=== PATIENT | male | born 1975 | race Caucasian/White ===

== ENCOUNTER 2018-12-30 15:15 | Emergency (ER) | payer OTHER ==
[~2018-12-30] VITALS: Ht 182.9 cm; Wt 114.8 kg
[~2018-12-30 15:15] MED LIST: COUMADIN5 MG PO; COUMADIN7.5 MG PO; LOV40I SQ; LOVENOX100 MG/ML SC; XARELTO15 M1 PO
[2018-12-30 15:28] VITALS: Ht 182.9 cm; Wt 114.8 kg
[2018-12-30 17:14] VITALS: BP 128/78
== END 2018-12-30 17:14 | disposition home or self-care (01) ==
LOC: ED 15:15
DX: I83.91 Asymptomatic varicose veins of right lower extremity (principal); I26.99 Other pulmonary embolism without acute cor pulmonale; M54.40 Lumbago with sciatica, unspecified side; Z88.0 Allergy status to penicillin; Z79.01 Long term (current) use of anticoagulants
CPT/HCPCS: 36415

== ENCOUNTER 2019-04-16 13:16 | Emergency (ER) | payer OTHER ==
[~2019-04-16] VITALS: Ht 190.5 cm; Wt 113.4 kg
[2019-04-16 13:27] VITALS: Ht 190.5 cm; Wt 113.4 kg
[2019-04-16 17:20] VITALS: BP 135/83
== END 2019-04-16 17:20 | disposition home or self-care (01) ==
LOC: ED 13:16
DX: I82.402 Acute embolism and thrombosis of unspecified deep veins of left lower extremity (principal); M54.30 Sciatica, unspecified side; Z88.0 Allergy status to penicillin; Z79.01 Long term (current) use of anticoagulants
CPT/HCPCS: 36415; Q0092

== ENCOUNTER 2020-08-19 12:57 | Emergency (ER) | payer OTHER ==
[2020-08-19 15:02] LABS: BASOPHIL % 0.4 % (0-2); PLATELET COUNT 255 x10^3mcL (130-400)
[2020-08-19 15:03] LABS: RED CELL DISTRIBUTION WIDTH 14.9 % (11.5-14.5)
[2020-08-19 15:29] LABS: CALCIUM 8.5 mg/dL (8.5-10.1); CARBON DIOXIDE 29.6 mmol/L (21-32); CHLORIDE SERUM 101 mmol/L (98-107); CREATININE SERUM 1.2 mg/dL (0.7-1.3); GFR1 > 60 mL/min; GLUCOSE SERUM 101 mg/dL (74-106); POTASSIUM SERUM 3.3 mmol/L (3.5-5.1); SODIUM SERUM 137 mmol/L (136-145)
[2020-08-19 18:10] VITALS: BP 145/74
== END 2020-08-19 18:11 | disposition home or self-care (01) ==
LOC: ED 12:57
PROVIDERS: Emergency Medicine
DX: M79.661 Pain in right lower leg (principal); I82.401 Acute embolism and thrombosis of unspecified deep veins of right lower extremity; R79.1 Abnormal coagulation profile; Z88.0 Allergy status to penicillin
CPT/HCPCS: Q0092

== ENCOUNTER 2020-08-21 00:08 | Inpatient (IN) | payer OTHER ==
[~2020-08-21] VITALS: Ht 190.5 cm; Wt 117.9 kg
[2020-08-21 00:17] VITALS: Ht 190.5 cm; Wt 117.9 kg
[2020-08-21 01:42] LABS: ALBUMIN 2.3 g/dL (3.4-5.0); ALKALINE PHOSPHATASE 33 U/L (46-116); ALT/SGPT 185 U/L (16-63); AST/SGOT 62 U/L (15-37); BILIRUBIN TOTAL 0.91 mg/dL (0.20-1.00); CALCIUM 6.1 mg/dL (8.5-10.1); CARBON DIOXIDE 23.4 mmol/L (21-32); CHLORIDE SERUM 110 mmol/L (98-107); GFR1 > 60 mL/min; GLUCOSE SERUM 97 mg/dL (74-106); SODIUM SERUM 142 mmol/L (136-145); TOTAL PROTEIN, SERUM 5.4 g/dL (6.4-8.2)
[2020-08-21 01:44] LABS: POTASSIUM SERUM 2.5 mmol/L (3.5-5.1)
[2020-08-21 02:15] LABS: BASOPHIL % 0.2 % (0-2); PLATELET COUNT 233 x10^3mcL (130-400)
[2020-08-21 09:49] LABS: microscopic required? YES; urine erythrocyte NEGATIVE (NEGATIVE)
[2020-08-21 10:55] VITALS: BP 143/79
[2020-08-21 16:02] VITALS: BP 132/77
[2020-08-21 19:17] VITALS: BP 135/85
[2020-08-22 04:32] VITALS: BP 115/67
[2020-08-22 08:11] VITALS: BP 106/62
[2020-08-22 08:25] LABS: BASOPHIL % 0.4 % (0-2); PLATELET COUNT 268 x10^3mcL (130-400)
[2020-08-22 10:01] LABS: CALCIUM 8.3 mg/dL (8.5-10.1); CARBON DIOXIDE 26.2 mmol/L (21-32); CHLORIDE SERUM 101 mmol/L (98-107); CREATININE SERUM 1.1 mg/dL (0.7-1.3); GFR1 > 60 mL/min; GLUCOSE SERUM 84 mg/dL (74-106); POTASSIUM SERUM 3.5 mmol/L (3.5-5.1); SODIUM SERUM 138 mmol/L (136-145)
[2020-08-22 12:36] VITALS: BP 139/76
[2020-08-22 16:22] VITALS: BP 139/76
[2020-08-22 16:35] VITALS: BP 144/81
== END 2020-08-22 16:57 | disposition short-term general hospital (02) | DRG 605 ==
LOC: ED 00:08 → DU 07:53
PROVIDERS: Emergency Medicine; ADMIT Internal Medicine; ATTEND Internal Medicine
DX: S70.11XA Contusion of right thigh, initial encounter (principal); D68.9 Coagulation defect, unspecified; Z88.0 Allergy status to penicillin; X58.XXXA Exposure to other specified factors, initial encounter; Y93.89 Activity, other specified; Y92.89 Other specified places as the place of occurrence of the external cause; Y99.8 Other external cause status; Z20.828 Contact with and (suspected) exposure to other viral communicable diseases; Z83.3 Family history of diabetes mellitus; Z82.49 Family history of ischemic heart disease and other diseases of the circulatory system; D50.0 Iron deficiency anemia secondary to blood loss (chronic); M54.10 Radiculopathy, site unspecified; I73.9 Peripheral vascular disease, unspecified
CPT/HCPCS: G0378; J2270; J2405; J3430; J3480; J3490; Q9967; U0003